=== PATIENT | female | born 1975 | race Caucasian/White ===

== ENCOUNTER 2016-12-04 06:09 | Inpatient (IN) | payer OTHER ==
[2016-12-03 10:33] VITALS: BMI 33.0
--- NOTE | 2016-12-03 11:03 | PREOPHP ---
DATE OF ADMISSION: 12/04/2016 CHIEF COMPLAINT: Excessive vaginal bleeding; uterine fibroids. HISTORY OF PRESENT ILLNESS: This is a 41-year-old female, 3, para 2, who has been bleeding for a period of time over a year now and was found to have large fibroids. She was recently admitte d to this hospital and received blood transfusion due to anemia secondary to the bleeding. A total abdominal hysterectomy was planned for this patient. She has a very large uterus, the size of a pre gnancy of 20 weeks. The alternatives of this, the benefits of the procedure, the risks, and the pos sible complications like infection, hemorrhage, and pelvic organ injury during the procedure were di scussed with the patient at great length. A shared decision-making process was initiated in the off ice. The patient was shown graphically what the removal of the uterus implies and the possible risk s, particularly having had sections before. She was allowed to ask questions. All her que stions were answered to her satisfaction, and she signed the appropriate surgical informed consent. PAST MEDICAL HISTORY: The patient denies any medical problems. Denies diabetes, cardiovascular dis ease, renal disease, liver disease, neurological disease, or thyroid problems. ALLERGIES: NO KNOWN ALLERGIES. MEDICATIONS: She has been taking iron on a regular basis along with Provera to stop the bleeding. FAMILY HISTORY: Noncontributory. REVIEW OF SYSTEMS: A 12-point review of systems is noncontributory. PHYSICAL EXAMINATION: GENERAL: Well-developed and nourished, in no distress, alert and oriented x3. VITAL SIGNS: Showed temperature to be 98, blood pressure 120/82, respirations 16 per minute, pulse is 72 per minute regular. HEENT: Within normal limits. Pupils are PERRLA. NECK: Supple. The thyroid is not palpable. There is no lymphadenopathy present. BREASTS: Show no masses or lumps. LUNGS: Clear to percussion and auscultation. HEART: Revealed normal sinus rhythm without a murmur. ABDOMEN: Soft. No palpable mass, firm, subumbilical, in the hypogastric area. There is an old Pfan nenstiel incision that is well healed. PELVIC: Normal external genitalia. Cervix is normal. Bimanual exam: The uterus is enlarged to ab out 20 weeks in size, irregular. No adnexal masses are present. LOWER EXTREMITIES: Within normal limits. NEUROLOGIC: normal. IMPRESSION: 1. Large uterine fibroids. 2. Excessive vaginal bleeding 3. Anemia. PLAN: The patient is to be admitted for a total abdominal hysterectomy tomorrow 12/04/2016. Dictated By: KATELYN BRAY MD CR/NTS Conf#: [id number] DID#: [id number] CC: AMPARO OLIVEROS MD;*End*
[~2016-12-04] VITALS: Ht 165.1 cm; Wt 90.3 kg
[2016-12-04] VITALS (25 sets, daily range): BP systolic 101–152; BP diastolic 59–88; PULSE 66–96; RESP 15–24; Ht 165.1 cm; Wt 90.3 kg
[2016-12-04] MEDS: LACTATED RINGER'S 1,000 ML IV* SCH ×3 (06:00→20:18)
[~2016-12-04 06:09] MED LIST: ABCC1C PO; MEDR10TA50 PO; NIF150 PO
[2016-12-04] MEDS ORDERED: FER325 PO (06:45)
[2016-12-04] MEDS ORDERED: NORE-82 PO (06:45)
[2016-12-04] MEDS ORDERED: VASOPRESSIN 20 UNITS INJ ONE (07:02)
[2016-12-04] MEDS ORDERED: SODIUM CL BACTERIOSTATIC 30 ML INJ ONE (07:02)
--- NOTE | 2016-12-04 07:06 | RADRPT ---
PROCEDURE: XR Chest. CLINICAL INDICATION: Preoperative evaluation. TECHNIQUE: Single frontal chest x-ray. COMPARISON: None available FINDINGS: A small patchy opacity is present in the right lower lobe. Scattered upper lobe well-defined rounde d densities likely represent calcified granulomas. Lungs are hypoinflated. No pleural effusion or pneumothorax is seen. The cardiomediastinal silhouette is unremarkable. The osseous structures are grossly intact. IMPRESSION: 1. Small patchy right lower lobe opacity may represent focal infiltrate or nodule. Follow-up PA and lateral chest x-ray versus CT may be obtained. 2. Scattered upper lobe well-defined small rounded densities likely represent calcified granulomas. RPTAT: QQ .Joel Viramontes MD, MD Date Time Electronically viewed and signed by .Joel Viramontes MD, on 12/04/2016 07:06 .A/
[2016-12-04] MEDS ORDERED: MIDAZOLAM 1 MG/ML 2 ML INJ ONE (07:35)
[2016-12-04] MEDS ORDERED: SUCCINYLCHOLINE CHLORIDE 100 MG/5 ML SYG IV ONE (07:35)
[2016-12-04] MEDS ORDERED: PROPOFOL 20 ML ONE ×2 (07:35→07:52)
[2016-12-04] MEDS ORDERED: ROCURONIUM 50 MG INJ ONE (07:35)
[2016-12-04] MEDS ORDERED: LIDOCAINE 2% (SDV) 5 ML INJ ONE (07:35)
[2016-12-04] MEDS ORDERED: morphine SULFATE/PF (10 MG/10 ML) INJ ONE (07:37)
[2016-12-04] MEDS ORDERED: PHENYLephrine (100 MCG/ML) 5ML SYG ONE ×2 (07:54→08:24)
[2016-12-04] MEDS ORDERED: CEFAZOLIN 1 GM INJ ONE (08:00)
[2016-12-04] MEDS ORDERED: EPHEDrine SULFATE 50 MG/5 ML SYG ONE (08:35)
[2016-12-04] MEDS ORDERED: ONDANSETRON 4 MG INJ ONE (08:39)
[2016-12-04] MEDS ORDERED: FAMOTIDINE 20 MG INJ ONE (08:40)
[2016-12-04] MEDS ORDERED: DEXAMETHASONE 4 MG/ML 1 ML INJ ONE (08:40)
[2016-12-04] MEDS ORDERED: NALBUPHINE HCL (10 MG/1 ML) INJ IV PRN (09:00)
[2016-12-04] MEDS ORDERED: HYDROmorphONE 1 MG/ML SYG IV PRN ×2 (09:00)
[2016-12-04] MEDS ORDERED: HYDROCODONE/APAP (5/325) TAB PO PRN (09:00)
[2016-12-04] MEDS ORDERED: HYDROmorphONE (0.2 MG/ML) 10ML SYG IV PRN (09:00)
[2016-12-04] MEDS ORDERED: ONDANSETRON 4 MG INJ IV PRN ×2 (09:00)
[2016-12-04] MEDS ORDERED: DIPHENHYDRAMINE 50 MG INJ IV PRN ×2 (09:00)
[2016-12-04] MEDS ORDERED: ACETAMINOPHEN 500 MG TAB PO PRN (09:00)
[2016-12-04] MEDS ORDERED: PROCHLORPERAZINE 10 MG INJ IV PRN (09:00)
[2016-12-04] MEDS ORDERED: MEPERIDINE 25 MG INJ IV PRN (09:00)
[2016-12-04] MEDS ORDERED: FENTAnyl 50 MCG/ML VIAL IV PRN (09:00)
[2016-12-04] MEDS ORDERED: NALOXONE (0.4 MG/ML) INJ IV PRN (09:00)
[2016-12-04] MEDS ORDERED: EPHEDrine SULFATE 50 MG/5 ML SYG IV PRN (09:00)
[2016-12-04] MEDS ORDERED: NEOSTIGMINE 3 MG/3 ML SYRINGE ONE ×2 (09:02→09:49)
[2016-12-04] MEDS ORDERED: GLYCOPYRROLATE 1 MG INJ ONE (09:02)
[2016-12-04] MEDS: LACTATED RINGER'S 1,000 ML IV SCH ×2 (09:58→18:11)
[2016-12-04] MEDS ORDERED: ACETAMINOPHEN 325 MG TAB PO PRN (10:00)
[2016-12-04] MEDS ORDERED: OXYCODONE/ACETAMINOPHEN (5/325) TAB PO PRN (10:00)
[2016-12-04] MEDS: ACETAMINOPHEN 1000MG/100ML IV 100 ML IVPB SCH ×3 (10:30→22:39)
[2016-12-04] MEDS: KETOROLAC 30 MG INJ IV PRN ×2 (10:37→20:19)
--- NOTE | 2016-12-04 13:07 | OPR ---
DATE OF OPERATION: 12/04/2016 PREOPERATIVE DIAGNOSES: 1. Excessive urine bleeding. 2. Fibroids. 3. Anemia. POSTOPERATIVE DIAGNOSES: 1. Excessive uterine bleeding. 2. Fibroids. 3. Anemia. OPERATION PERFORMED: Total abdominal hysterectomy, bilateral salpingectomy. SURGEON: Katelyn Herrmann MD. INSIDE SALES AGENT: Amparo Dave MD ANESTHESIA: Spinal and general. ANESTHESIOLOGIST: Lelia Banuelos MD ESTIMATED BLOOD LOSS: 300 mL. COMPLICATIONS: None. SPECIMENS: The uterus was sent to pathology as well as both fallopian tubes. PROCEDURE AND FINDINGS: With the patient under spinal and general anesthesia, laid on the table in the dorsal recumbent position. Her vagina and perineum was prepped with Betadine and a Hill cathet er was inserted. The abdomen was prepped with ChloraPrep and after 3 minutes was draped in the usua l sterile fashion for this procedure. The patient had a midline subumbilical scar and the uterus wa s large enough that we proceeded with another midline subumbilical incision. This was carried throu gh all the layers of the abdominal wall with ease. Once in the abdomen, a large symmetrical firm ut erus was found the size of a of 16 to 17 weeks. There were adhesions anteriorly of the bl adder to the uterus were extensive and had to be lysed prior to starting the case. This was done wit h scissors. The bladder was dissected away carefully from the anterior uterine wall. Then, the hys terectomy was started by clamping the left round ligament with LigaSure and then cutting it. The sa me was repeated on the contralateral side after releasing some more adhesions. Then, the anterior l eaf of the broad ligament was opened releasing more adhesions yet from the bladder. The upper pedic le on both sides consisted of an utero-ovarian ligament and tube and the round ligament was then cau terized and cut with the Bovie. This liberated the uterus further. The uterus was injected with a solution of vasopressin 20 units and 50 mL of normal saline. The uterine pedicles were skeletonized bilaterally and held by Maria Del Rosario clamps, cut and sutured with 0 Vicryl. Then, the specimen was trans ected high removing the body of the uterus with large fibroid. The stump of the cervix was held by long Vijay clamps. The bladder was dissected away further from the uterine cervix. The cardinal l igaments were clamped bilaterally with straight Maria Del Rosario clamps, cut and sutured with 0 Vicryl. The u terosacral ligaments were then identified and held by Maria Del Rosario clamps, cut and sutured with 0 Vicryl. The endopelvic fascia was circumferentially opened around the cervix. This was pushed away anterio rly to make the bladder even safer. The vagina was entered posteriorly and the cervix removed with Hebert's scissors. The vaginal cuff was closed with several sutures of rktyhq-qn-lelof of 0 Vicr yl that were held for reference. The pelvis was thoroughly washed with warm saline and this was suc tioned out. There was some active bleeding from the upper pedicle on the right side and ovarian vei n and artery. This was controlled with a Maria Del Rosario clamp and a jacckm-vi-cyjre suture of 0 Vicryl, obt aining good hemostasis. The vaginal cuff and the pedicles were inspected for bleeders. There were none. The vesicoperitoneum was then closed with a continuous running stitch of double 0 chromic cat gut, peritonealize the whole pelvis. No active bleeding was seen. The pelvis was thoroughly washed more with warm saline and this was suctioned out. The fallopian tubes were removed. The mesosalpi nx were clamped with Maria Del Rosario clamps and then cut and sutured with 0 Vicryl twice bilaterally. The ov wilber were normal and were left in place intraperitoneally. No active bleeding was seen thus all th e packing was removed. The first count of sponges was correct at this point. The abdomen was close d starting with the peritoneum with a continuous stitch of double 0 chromic catgut. The fascia was closed with 2 convergent running sutures of 0 PDS. Several ebvirm-hk-yfdjw reinforcing sutures of 0 Vicryl were utilized also. The subcutaneous tissues were approximated with continuous stitch of do uble 0 chromic catgut. Finally, the edges of skin were brought together with separate sterile stapl es. Sterile pressure dressing was applied and the patient was taken to recovery room and all vital signs stable. The urine in the Hill bag was clear at all times and abundant. EBL was 300 mL of bl ood. Needle, sponge and instrument count at the end of the procedure was correct twice. Dictated By: KATELYN COLLAZO/GINNA Conf#: [id number] DID#: [id number] CC: LELIA BANUELOS; AMPARO DAVE MD;*[facility]*
[2016-12-04] MEDS: CEFAZOLIN 2 GM/50 ML (PMX) 50 ML IVPB SCH ×2 (13:42→21:53)
[2016-12-05 00:05] VITALS: BP 107/57; RESP 18
[2016-12-05] MEDS: ACETAMINOPHEN 1000MG/100ML IV 100 ML IVPB SCH ×4 (04:14→22:45)
[2016-12-05] MEDS: LACTATED RINGER'S 1,000 ML IV* SCH ×3 (05:28→22:00)
[2016-12-05] MEDS: PANTOPRAZOLE 40 MG INJ IV SCH (05:30)
[2016-12-05] MEDS: CEFAZOLIN 2 GM/50 ML (PMX) 50 ML IVPB SCH (05:31)
[2016-12-05] MEDS: LACTATED RINGER'S 1,000 ML IV SCH ×2 (05:33→14:18)
[2016-12-05 06:29] LABS: BASOPHILS % 0.2 % (0.0-2.0); EOSINOPHILS % 0.2 % (0.0-7.0); HEMATOCRIT 26.6 % (37.0-47.0); HEMOGLOBIN 8.5 g/dl (12.0-16.0); LYMPHOCYTES # 1.3 10^3/ul (0.8-2.9); LYMPHOCYTES % 15.6 % (15.0-51.0); MEAN CORPUSCULAR HEMOGLOBIN 26.6 pg (29.0-33.0); MEAN CORPUSCULAR HGB CONC 32.1 g/dl (32.0-37.0); MEAN CORPUSCULAR VOLUME 82.8 fl (82.0-101.0); MEAN PLATELET VOLUME 8.3 fl (7.4-10.4); MONOCYTE # 0.7 10^3/ul (0.3-0.9); MONOCYTES % 8.1 % (0.0-11.0); NEUTROPHIL # 6.5 10^3/ul (1.6-7.5); NEUTROPHILS % 75.9 % (39.0-77.0); PLATELET COUNT 358 10^3/UL (140-440); RED BLOOD COUNT 3.21 10^6/ul (4.20-5.40); RED CELL DISTRIBUTION WIDTH 17.9 % (11.5-14.5); UNCORRECTED WBC 8.5 10^3/ul (4.8-10.8); WHITE BLOOD COUNT 8.5 10^3/ul (4.8-10.8)
[2016-12-05 06:30] LABS: POTASSIUM 3.8 mmol/L (3.5-5.1)
[2016-12-05 06:32] LABS: CREATININE 0.79 mg/dl (0.44-1.00)
[2016-12-05 06:33] LABS: CALCIUM 8.9 mg/dl (8.4-10.2)
[2016-12-05 06:37] LABS: CONDITION 1; LH ANALYZER COMMENTS 1
--- NOTE | 2016-12-05 07:18 | PN ---
Date/Time of Note Date/Time of Note DATE: 12/05/16 TIME: 07:13 Assessment/Plan VTE Prophylaxis VTE Prophylaxis Intervention: ambulation, anti-embolic stocking Lines/Catheters IV Catheter Type (from Nrsg): Peripheral IV Urinary Cath still in place: No Assessment/Plan Chief Complaint/Hosp Course Doing well,no nausea.Hill removed this morning Problems: Assessment/Plan Afebrile.Hemoglobin 8.5 WBC 8.5 Cont'd Hospitalization Reason: Still requires IV pain meds. Exam/Review of Systems Vital Signs Vitals Vital Signs Date Time Temp Pulse Resp B/P Pulse Ox O2 Delivery O2 Flow Rate FiO2 12/05/16 00:05 98.6 68 18 107/57 12/04/16 19:51 93 12/04/16 14:15 Nasal Cannula 2.0 Intake and Output 12/04/16 12/04/16 12/05/16 15:00 23:00 07:00 Intake Total 1650 ml 850 ml 1390 ml Output Total 925 ml 1000 ml 1100 ml Balance 725 ml -150 ml 290 ml Results Result Diagram: 12/05/1618 12/05/16 0518 Results 24 hrs Laboratory Tests Test 12/05/16 05:18 Anion Gap 13 Basophils # 0.0 Basophils % 0.2 Blood Morphology Comment Blood Urea Nitrogen 13 Calcium Level 8.9 Carbon Dioxide Level 26 Chloride Level 104 Creatinine 0.79 Eosinophils # 0.0 Eosinophils % 0.2 Glucose Level 95 Hematocrit 26.6 L Hemoglobin 8.5 L Lymphocytes # 1.3 Lymphocytes % 15.6 Mean Corpuscular Hemoglobin 26.6 L Mean Corpuscular Hemoglobin Concent 32.1 Mean Corpuscular Volume 82.8 Mean Platelet Volume 8.3 Monocytes # 0.7 Monocytes % 8.1 Neutrophils # 6.5 Neutrophils % 75.9 Nucleated Red Blood Cells # 0.0 Nucleated Red Blood Cells % 0.0 Platelet Count 358 # Potassium Level 3.8 Red Blood Count 3.21 L Red Cell Distribution Width 17.9 H Sodium Level 139 White Blood Count 8.5 # Medications Medications Current Medications Lactated Ringer's (Lr) 1,000 ml @ 125 mls/hr Q8H IV* ; Start 12/04/16 at 06:00 Hydromorphone HCl (Dilaudid) 0.4 mg Q2H PRN IV PAIN LEVEL 1-5; Start 12/04/16 at 09:00; Stop 12/05/16 at 07:45 Hydromorphone HCl (Dilaudid) 0.6 mg Q2H PRN IV PAIN LEVEL 6-10; Start 12/04/16 at 09:00; Stop 12/05/16 at 07:45 Acetaminophen (Tylenol Tab) 500 mg Q4H PRN PO PAIN LEVEL 1-3; Start 12/04/16 at 09:00; Stop 12/05/16 at 07:45; Status Future Hold Acetaminophen/ Hydrocodone Bitart ([place] (5/325)) 1 tab Q4H PRN PO PAIN LEVEL 4 -6; Start 12/04/16 at 09:00; Stop 12/05/16 at 07:45 Diphenhydramine HCl (Benadryl) 25 mg Q4H PRN IV PRURITUS Last administered on 12:59; Admin Dose 25 MG; Start 12/04/16 at 09:00; Stop 12/05/16 at 07:45 Nalbuphine HCl (Nubain) 5 mg Q4H PRN IV PRURITUS; Start 12/04/16 at 09:00; Stop 12/05/16 at 07:45 Ondansetron HCl (Zofran Inj) 4 mg Q6H PRN IV NAUSEA AND/OR VOMITING; Start 12/04 at 09:00; Stop 12/05/16 at 07:45 Naloxone HCl 0.2 mg 0.2 mg Q2M PRN IV FOR RESP RATE 8 OR LESS; Start 12/04/16 at 09:00; Stop 12/05/16 at 07:45 Lactated Ringer's (Lr) 1,000 ml @ 100 mls/hr Q10H IV Last administered on 05:33; Admin Dose 100 MLS/HR; Start 12/04/16 at 09:58 Acetaminophen (Tylenol Tab) 650 mg Q4H PRN PO PAIN LEVEL 1-5; Start 12/04/16 at 10:00; Status Future Hold Ibuprofen (Motrin) 600 mg Q8H PRN PO PAIN AND OR ELEVATED TEMP; Start 12/07/16 at 10:00 Oxycodone/ Acetaminophen (Percocet (5/ 325)) 1 tab Q4H PRN PO PAIN LEVEL 6-10; Start 12/04/16 at 10:00 Ondansetron HCl (Zofran Inj) 4 mg Q6H PRN IV NAUSEA AND/OR VOMITING; Start 12/04 at 10:00 Oxycodone/ Acetaminophen (Percocet (5/ 325)) 2 tab Q4H PRN PO PAIN; Start at 10:00 Pantoprazole (Protonix Iv) 40 mg DAILY@06 IV Last administered on 12/05/16 05: 30; Admin Dose 40 MG; Start 12/05/16 at 06:00 Ketorolac Tromethamine 30 mg 30 mg Q6H PRN IV PAIN Last administered on 20:19; Admin Dose 30 MG; Start 12/04/16 at 10:30; Stop 12/07/16 at 10:29 Acetaminophen (Ofirmev 1000mg/ 100ml Iv) 100 ml @ 400 mls/hr Q6H IVPB Last administered on 12/05/16 04:14; Admin Dose 400 MLS/HR; Start 12/04/16 at 10:30 KATELYN BRAY MD Dec 05, 2016 07:18
[2016-12-05 08:22] VITALS: BP 114/67; RESP 17
[2016-12-05] MEDS: KETOROLAC 30 MG INJ IV PRN (14:15)
[2016-12-05] MEDS: OXYCODONE/ACETAMINOPHEN (5/325) TAB PO PRN (18:38)
[2016-12-05 19:20] VITALS: BP 136/76; RESP 20
[2016-12-06] MEDS: OXYCODONE/ACETAMINOPHEN (5/325) TAB PO PRN ×3 (00:10→20:03)
[2016-12-06] MEDS: LACTATED RINGER'S 1,000 ML IV SCH (01:58)
[2016-12-06] MEDS: ACETAMINOPHEN 1000MG/100ML IV 100 ML IVPB SCH (04:35)
[2016-12-06] MEDS: LACTATED RINGER'S 1,000 ML IV* SCH (06:00)
[2016-12-06] MEDS: PANTOPRAZOLE 40 MG INJ IV SCH (06:23)
[2016-12-06 07:40] VITALS: BP 147/90; RESP 18
--- NOTE | 2016-12-06 08:11 | PD.PPDC ---
WIRELESS CELLULAR TECHNICIAN Discharge Instruction Diagnosis Final Diagnosis: Fibroids with excessive vaginal bleeding and anemia Condition Patient Condition: Good Diet Diet: Resume Regular Diet Activity/Restrictions Activity: Normal Activity May Shower Restrictions: No Exercising No Lifting No Sexual Activity Nothing in the Vagina No [place] Wound/Drain Care Instructions Wound/Drain Care Instructions: Keep clean and dry Follow-up Follow-up with Physician: 1, Week/Weeks Return to clinic for ASSISTANT IMPORT MANAGER Instructions: Fever greater than 101 Worsening abdominal pain Unable to tolerate diet Surgical Instructions: Incisional Drainage Incisional Redness KATELYN BRAY MD Dec 06, 2016 08:11
[2016-12-06] MEDS: MAGNESIUM HYDROXIDE 30ML CUP PO SCH ×2 (08:52→21:11)
[2016-12-06] MEDS: ENOXAPARIN 40 MG/0.4 ML SYG SC SCH (08:54)
--- NOTE | 2016-12-06 09:38 | DS ---
DATE OF ADMISSION: 12/04/2016 DATE OF DISCHARGE: FINAL DIAGNOSES: Uterine fibroids with excessive vaginal bleeding and anemia. SUMMARY: This is a 41-year-old female, 2, para 2, with 2 previous sections who had been bleeding excessively for a period of time that had prompted her two admissions with blood godoy sfusions. She was brought in for a total abdominal hysterectomy. This was carried out under spinal and general anesthesia by Dr. Banuelos. The patient tolerated the procedure well. She is on her secon d day postop today and passing gases spontaneously. She required an extra day of admission for pain control. She is going to be discharged home with written instructions. She is to follow up with iam beckham in the office in 1 week. She was given a prescription for Percocet to use 1 or 2 tablets every 6 hours p.r.n. pain. She is discharged in good condition on a regular diet. Dictated By: KATELYN COLLAZO/NTS Conf#: [id number] DID#: [id number] CC: AMPARO OLIVREOS MD;*End*
[2016-12-06 19:39] VITALS: BP 130/81; RESP 18
[2016-12-07] MEDS: PANTOPRAZOLE 40 MG INJ IV SCH (05:23)
[2016-12-07] MEDS: OXYCODONE/ACETAMINOPHEN (5/325) TAB PO PRN (05:33)
[2016-12-07 07:17] VITALS: BP 137/85; RESP 18
[2016-12-07] MEDS: ONDANSETRON 4 MG INJ IV PRN ×2 (07:57→14:21)
[2016-12-07 08:00] VITALS: BP 118/80; PULSE 88; RESP 18
[2016-12-07] MEDS ORDERED: IBUPROFEN 600 MG TAB PO PRN (10:00)
[2016-12-07] MEDS: MAGNESIUM HYDROXIDE 30ML CUP PO SCH (11:26)
[2016-12-07] MEDS: ENOXAPARIN 40 MG/0.4 ML SYG SC SCH (11:26)
== END 2016-12-07 17:00 | disposition home or self-care (01) | DRG 743 ==
LOC: REC 06:09 → MS1 11:27
PROVIDERS: ADMIT Specialist; ATTEND Specialist
PROC: 0UTC0ZZ Resection of Cervix, Open Approach (ICD-10-PCS; 2016-12-04)
PROC: 0UB70ZZ Excision of Bilateral Fallopian Tubes, Open Approach (ICD-10-PCS; 2016-12-04)
PROC: 0UT90ZZ Resection of Uterus, Open Approach (ICD-10-PCS; principal; 2016-12-04 07:30)
DX: D25.1 Intramural leiomyoma of uterus (principal); D50.0 Iron deficiency anemia secondary to blood loss (chronic); N92.4 Excessive bleeding in the premenopausal period
CPT/HCPCS: 71010; 80048; 84703; 85025; 86850; 86870; 86900; 86901; 86920; 87086; 88307; C9113; J0131; J0330; J0690; J1100; J1200; J1650; J1885; J2175; J2250; J2274; J2370; J2405; J2710; J7120

== ENCOUNTER 2017-03-17 13:07 | Day surgery (SDC) | payer OTHER ==
[~2017-03-17] VITALS: Ht 165.1 cm; Wt 85.0 kg
[2017-03-17] VITALS (10 sets, daily range): BP systolic 129–148; BP diastolic 86–97; PULSE 81–92; RESP 17–28; Ht 165.1 cm; Wt 85.0 kg
[~2017-03-17 13:07] MED LIST changes: -ABCC1C PO; +CEFAZOLIN 2 GM/50 ML (PMX) 50 ML IVPB SCH; -MEDR10TA50 PO; -NIF150 PO; +SOD CHLORIDE 0.9% 1,000 ML IV SCH
[2017-03-17] MEDS ORDERED: IBUP100O10 PO (13:57)
[2017-03-17 13:59] LABS: ADD SCAN DIFF NO
[2017-03-17 14:01] LABS: BASOPHILS % 0.7 % (0.0-2.0); EOSINOPHILS # 0.3 10^3/ul (0.0-0.5); HEMATOCRIT 35.7 % (37.0-47.0); HEMOGLOBIN 10.5 g/dl (12.0-16.0); LYMPHOCYTES # 1.8 10^3/ul (0.8-2.9); LYMPHOCYTES % 30.4 % (15.0-51.0); MEAN CORPUSCULAR HGB CONC 29.4 g/dl (32.0-37.0); MEAN CORPUSCULAR VOLUME 74.7 fl (82.0-101.0); MEAN PLATELET VOLUME 9.5 fl (7.4-10.4); MONOCYTE # 0.5 10^3/ul (0.3-0.9); MONOCYTES % 8.3 % (0.0-11.0); NEUTROPHIL # 3.4 10^3/ul (1.6-7.5); NEUTROPHILS % 55.4 % (39.0-77.0); PLATELET COUNT 355 10^3/UL (140-415); RED BLOOD COUNT 4.78 10^6/ul (4.20-5.40); RED CELL DISTRIBUTION WIDTH 20.2 % (11.5-14.5); WHITE BLOOD COUNT 6.1 10^3/ul (4.8-10.8)
[2017-03-17 14:14] LABS: INR 0.98; PARTIAL THROMBOPLASTIN TIME 26.9 Sec (25.0-35.0)
[2017-03-17 14:21] LABS: ALBUMIN 4.1 g/dl (3.3-4.9)
[2017-03-17 14:22] LABS: POTASSIUM 3.2 mmol/L (3.5-5.1)
[2017-03-17 14:24] LABS: ALBUMIN/GLOBULIN RATIO 1.13; BILIRUBIN,INDIRECT 1.2 mg/dl (0-1.1); BILIRUBIN,TOTAL 1.2 mg/dl (0.2-1.3); TOTAL PROTEIN 7.7 g/dl (6.1-8.1)
[2017-03-17 14:25] LABS: CALCIUM 9.1 mg/dl (8.4-10.2); CREATININE 0.71 mg/dl (0.44-1.00)
[2017-03-17] MEDS ORDERED: BUPIVACAINE 0.25% (MPF) 30 ML INJ ONE (17:19)
[2017-03-17] MEDS ORDERED: LIDOCAINE 2% (MDV) 20 ML INJ ONE (17:24)
[2017-03-17] MEDS ORDERED: BUPIVACAINE 0.5% (SDV) 30 ML INJ ONE (17:24)
[2017-03-17] MEDS ORDERED: MIDAZOLAM 1 MG/ML 2 ML INJ ONE (17:41)
[2017-03-17] MEDS ORDERED: FENTAnyl 50 MCG/ML VIAL ONE (17:41)
[2017-03-17] MEDS ORDERED: CEFAZOLIN 1 GM INJ ONE (18:01)
[2017-03-17] MEDS ORDERED: PROPOFOL 20 ML ONE (18:01)
[2017-03-17] MEDS ORDERED: LIDOCAINE 2% (SDV) 5 ML INJ ONE (18:01)
[2017-03-17] MEDS ORDERED: ONDANSETRON 4 MG INJ IV PRN (18:30)
[2017-03-17] MEDS ORDERED: METOCLOPRAMIDE 10 MG INJ IV PRN (18:30)
[2017-03-17] MEDS ORDERED: HYDROmorphONE (0.2 MG/ML) 10ML SYG IV PRN ×3 (18:30)
[2017-03-17] MEDS ORDERED: DIPHENHYDRAMINE 50 MG INJ IV PRN (18:30)
[2017-03-17] MEDS ORDERED: MEPERIDINE 25 MG INJ IV PRN (18:30)
[2017-03-17] MEDS ORDERED: FENTAnyl 50 MCG/ML VIAL IV PRN ×2 (18:30)
[2017-03-17] MEDS ORDERED: HYDROCODONE/APAP (5/325) TAB PO ONE (18:30)
--- NOTE | 2017-03-17 23:36 | OPR ---
DATE OF OPERATION: 03/17/2017 INDICATION: This is a 41-year-old female with a right arm mass x2 and left arm mass x1. She reques ts surgical excision of the masses. Risks, alternatives, benefits, and personnel were discussed wit h the patient. Patient expresses understanding and consents to the operation. PREOPERATIVE DIAGNOSIS: Right arm mass x2 and left arm mass x1. PREOPERATIVE DIAGNOSIS: Right arm mass x2 and left arm mass x1. OPERATION PERFORMED: 1. Excision of right upper arm mass x1 with incision size of 4 cm and mass size of 3 cm right lower arm. 2. Right lower arm excision of mass with 3 cm size incision and 3 cm size mass. 3. Left lower arm mass excision with a 4 cm size incision and 3 cm size mass. 4. Localized adjacent tissue transferred with the use of skin flaps. SURGEON: Sherri Miguel MD SPECIMENS: Right arm mass x2 and left arm mass x1. COMPLICATIONS: None. ANESTHESIA: MAC. PROCEDURE: The patient was taken to the OR and prepped and draped in usual sterile fashion. Surgic al timeout was performed. IV antibiotics were given. Local anesthesia infiltrated into left lower arm masses and right upper and lower arm masses. Transverse incision was made with a 15 blade and a ll surgical sites. Dissection cautery was carried down to the mass and circumferentially excised. There was good hemostasis. Due to tissue defect, localized adjacent tissue transferred with the use of skin flaps were performed on all 3 sites. There was good hemostasis. Dry dressings were applie d. Dictated By: SHERRI GARCIA/GINNA Conf#: [id number] DID#: [id number]
== END 2017-03-17 19:30 | disposition home or self-care (01) ==
LOC: SDS 13:07
PROVIDERS: ATTEND Surgery
DX: D17.22 Benign lipomatous neoplasm of skin and subcutaneous tissue of left arm (principal); D17.21 Benign lipomatous neoplasm of skin and subcutaneous tissue of right arm
CPT/HCPCS: 14020; 14021; 80053; 85025; 85610; 85730; 88307; J0690; J2250; J3010; Z7512; Z7610

== ENCOUNTER 2017-04-18 06:18 | Day surgery (SDC) | payer OTHER ==
[2017-04-17 15:19] VITALS: BMI 30.5
[~2017-04-18] VITALS: Ht 165.1 cm; Wt 86.2 kg
[2017-04-18] VITALS (8 sets, daily range): BP systolic 110–142; BP diastolic 68–93; PULSE 58–72; RESP 14–24; Ht 165.1 cm; Wt 86.2 kg
[~2017-04-18 06:18] MED LIST changes: -CEFAZOLIN 2 GM/50 ML (PMX) 50 ML IVPB SCH; +IBUP100O10 PO; -SOD CHLORIDE 0.9% 1,000 ML IV SCH
[2017-04-18] MEDS ORDERED: SEVOFLURANE 15 MIN ONE (07:00)
[2017-04-18] MEDS ORDERED: SOD CHLORIDE 0.9% 1,000 ML IV SCH (07:00)
[2017-04-18] MEDS ORDERED: CEFAZOLIN 1 GM INJ ONE (07:00)
[2017-04-18] MEDS ORDERED: CEFAZOLIN 2 GM/50 ML (PMX) 50 ML IVPB SCH (07:00)
[2017-04-18 07:14] LABS: ADD SCAN DIFF NO
[2017-04-18 07:37] LABS: BASOPHIL # 0.1 10^3/ul (0.0-0.1); BASOPHILS % 0.9 % (0.0-2.0); EOSINOPHILS # 0.2 10^3/ul (0.0-0.5); HEMATOCRIT 35.6 % (37.0-47.0); HEMOGLOBIN 10.6 g/dl (12.0-16.0); LYMPHOCYTES # 1.6 10^3/ul (0.8-2.9); LYMPHOCYTES % 29.5 % (15.0-51.0); MEAN CORPUSCULAR HEMOGLOBIN 23.1 pg (29.0-33.0); MEAN CORPUSCULAR HGB CONC 29.8 g/dl (32.0-37.0); MEAN CORPUSCULAR VOLUME 77.7 fl (82.0-101.0); MEAN PLATELET VOLUME 10.5 fl (7.4-10.4); MONOCYTE # 0.5 10^3/ul (0.3-0.9); MONOCYTES % 9.3 % (0.0-11.0); NEUTROPHILS % 56.1 % (39.0-77.0); PLATELET COUNT 372 10^3/UL (140-415); POTASSIUM 3.4 mmol/L (3.5-5.1); RED BLOOD COUNT 4.58 10^6/ul (4.20-5.40); RED CELL DISTRIBUTION WIDTH 20.5 % (11.5-14.5); WHITE BLOOD COUNT 5.3 10^3/ul (4.8-10.8)
[2017-04-18 07:39] LABS: INR 0.94; PARTIAL THROMBOPLASTIN TIME 28.1 Sec (25.0-35.0); PROTIME 12.6 Sec (12.2-14.2)
[2017-04-18 07:41] LABS: CALCIUM 8.9 mg/dl (8.4-10.2); CREATININE 0.65 mg/dl (0.44-1.00)
[2017-04-18] MEDS ORDERED: BUPIVACAINE 0.25% (MPF) 10 ML 10 ML VIAL ONE (07:42)
[2017-04-18] MEDS ORDERED: BUPIVACAINE 0.25% (MPF) 30 ML INJ ONE (07:42)
[2017-04-18] MEDS ORDERED: METO25TA7 PO (07:52)
[2017-04-18] MEDS ORDERED: LIDOCAINE 2% (SDV) 5 ML INJ ONE (07:53)
[2017-04-18] MEDS ORDERED: PROPOFOL 20 ML ONE (07:53)
[2017-04-18] MEDS ORDERED: MEPERIDINE 100 MG INJ ONE (07:53)
[2017-04-18] MEDS ORDERED: METOCLOPRAMIDE 10 MG INJ ONE (07:57)
[2017-04-18] MEDS ORDERED: ONDANSETRON 4 MG INJ ONE (07:57)
--- NOTE | 2017-04-18 08:40 | OPR ---
Date/Time of Note Date/Time of Note DATE: 04/18/17 TIME: 08:38 Operative Report Procedure Date: April 18, 2017 Preoperative Diagnosis right and left arm masses Postoperative Diagnosis same Operation Performed left lower arm tumor resection 5 cm incision and 4 cm tumor right lower arm anterior tumor resection 4 cm incision 2 cm tumor right lower arm posterior tumor resection 4 cm incision 2 cm tumor localized adjacent tissue transfer with the use of skin flaps total defect 13 sq cm Surgeon: Juni KEITH Specimens left arm mass right arm anterior mass right arm posterior mass Juni KEITH April 18, 2017 08:40
--- NOTE | 2017-04-18 08:56 | OPR ---
DATE OF OPERATION: 04/18/2017 INDICATION: This is a 41-year-old female with multiple masses in the right and left arm. She reque sts surgical excision. Risks, alternatives, benefits, and personnel were discussed with the patient . The patient expressed understanding and consents to the operation. PREOPERATIVE DIAGNOSIS: Right and left arm tumors. POSTOPERATIVE DIAGNOSIS: Right and left arm tumors. OPERATIONS PERFORMED 1. Left anterior lower arm tumor resection with a 5 cm incision and 4 cm size mass. 2. Right lower arm anterior tumor excision with a 4 cm size incision and 2 cm size mass. 3. Right lower arm posterior tumor excision with a 4 cm size incision and 2 cm size mass. 4. Localized adjacent tissue transfer with the use of skin flaps with total scored defect of 13 squ are cm. SURGEON: Sherri Miguel MD SPECIMEN: Left lower arm mass, right lower arm anterior mass, right lower arm posterior mass. COMPLICATIONS: None. ANESTHESIA: General. DESCRIPTION OF PROCEDURE: The patient was taken to the OR and prepped and draped in usual sterile f ashion. Surgical time out was performed. IV antibiotics were given. Transverse incision is made o kory the left lower arm mass with a 15 blade. Dissection cautery was carried down to the tumor and c ircumferentially excised. There was good hemostasis. Due to the large tissue defect, localized adj acent tissue transfer with the use of skin flaps was performed with interrupted 3-0 Vicryl for closu re and skin luz. Local anesthesia was injected. The right anterior arm masses were dressed in a similar fashion with a 15 blade and a transverse incision. Dissection cautery was carried down to the mass and circumferentially excised. The tumor was resected. Due to the tissue defect, localiz ed adjacent tissue transfer with the use of skin flaps was performed, multilayer closure with interr upted 3-0 Vicryl and skin luz. The right lower arm posterior mass was addressed in a similar fa shion with a transverse incision with a 15 blade. Dissection cautery was carried down to the mass a nd circumferentially excised. The tumor was resected and there was good hemostasis, closure and mul tiple other fashion with interrupted 3-0 Vicryl and skin luz. Local anesthesia was injected. D ry dressings were applied to all sites. Dictated By: SHERRI GARCIA/GINNA Conf#: [id number] [facility]#: [id number]
[2017-04-18] MEDS ORDERED: MEPERIDINE 25 MG INJ IV PRN (09:00)
[2017-04-18] MEDS ORDERED: MIDAZOLAM 1 MG/ML 2 ML INJ IV PRN (09:00)
[2017-04-18] MEDS ORDERED: METOCLOPRAMIDE 10 MG INJ IV PRN (09:00)
[2017-04-18] MEDS ORDERED: IBUPROFEN 600 MG TAB PO ONE (09:00)
[2017-04-18] MEDS ORDERED: DIPHENHYDRAMINE 50 MG INJ IV PRN (09:00)
[2017-04-18] MEDS ORDERED: FENTAnyl 50 MCG/ML VIAL IV PRN ×2 (09:00)
[2017-04-18] MEDS ORDERED: ONDANSETRON 4 MG INJ IV PRN (09:00)
[2017-04-18] MEDS ORDERED: morphine (1 MG/ML) 10ML SYRINGE IV PRN ×2 (09:00)
--- NOTE | 2017-04-18 19:31 | RADRPT ---
Vent Rate: 64 bpm RR Interval: 0 msec AL Interval: 152 msec QRS Duration: 92 msec QT Interval: 394 msec QTC Interval: 406 msec P-R-T [place]: 64 - 26 - 23 degrees Normal sinus rhythm Possible Left atrial enlargement Septal infarct , age undetermined Abnormal ECG Electronically Signed By: Yonny Perea [id number]
== END 2017-04-18 10:50 | disposition home or self-care (01) ==
LOC: SDS 06:18
PROVIDERS: ATTEND Surgery
DX: D17.21 Benign lipomatous neoplasm of skin and subcutaneous tissue of right arm (principal); I10 Essential (primary) hypertension; E66.9 Obesity, unspecified; Z68.31 Body mass index [BMI] 31.0-31.9, adult
CPT/HCPCS: 14021; 80048; 85025; 85610; 85730; 88307; 93005; J0690; J2175; J2405; J2765; Z7512; Z7610

== ENCOUNTER 2019-04-21 08:24 | Day surgery (SDC) | payer OTHER ==
--- NOTE | 2019-04-20 19:30 | PREOPHP ---
DATE OF ADMISSION: 04/18/2017 HISTORY OF PRESENT ILLNESS: This is a 43-year-old patient who is going to be admitted for diagnostic arthroscopy of right knee, partial medial and lateral meniscectomy, possibly repair synovectomy microfracture, application of Pimentel dressing. The patient has been experiencing right knee pain for quite a while. Conservative treatment resulted in limited benefit to the patient and patient has requested surgical intervention. PAST MEDICAL HISTORY: Hypertension, on medication. SOCIAL HISTORY: Nonsmoker, nondrinker. FAMILY HISTORY: Positive for hypertension. ALLERGIES: NO HISTORY OF ALLERGY TO MEDICATION. PHYSICAL EXAMINATION: VITAL SIGNS: Height of 55, weighing 197 pounds. SKIN: Within normal limits. ENT: PERRLA. HEAD AND NECK: Normocephalic. Trachea midline. Bilateral symmetrical carotid pulses. No mass, no bruit, no lymphadenopathy. CARDIOVASCULAR: Normal sinus rhythm. S1, S2 normal. No murmur, no JVD. Minimal peripheral edema. LUNGS: Clear. ABDOMEN: Protuberant. No organomegaly. No mass. Bowel sounds present. GENITOURINARY AND RECTAL: Not done, not pertinent to this admission. MUSCULOSKELETAL: Head and neck unremarkable. Upper extremities normal with normal neurovascular examination. Spine clear. Both lower extremities symmetrical and normal except for knees. There is synovitis present. Range of motion is from 0 to 125 degrees. Minimal muscle atrophy. There is joint line tenderness. There is tenderness over the medial as well as lateral tibiofemoral joint line and subpatellar crepitation. There is some tenderness over the medial and lateral patellofemoral joint. IMAGING DATA: MRI of the right knee has shown torn medial meniscus and torn lateral meniscus, chondromalacia. DIAGNOSIS: Right knee internal derangement, torn medial and lateral meniscus, synovitis. PLAN: Treatment plan, alternatives, risks and benefits discussed. The patient understands possible complications from surgery such as infection, bleeding, nerve damage, vascular damage, possibility of deep venous thrombosis, pulmonary embolism, hypersensitivity from medication, and even . [place] result may not be obtained depending on actual finding or unknown factor or factors. Formal H and P is supposed to be done by PCP. Dictated By: TR OG/GINNA Conf#: [id number] DID#: [id number] [facility]ITAL[facility]dir[facility]ak
[~2019-04-21] VITALS: Ht 165.1 cm; Wt 90.3 kg
[2019-04-21] VITALS (14 sets, daily range): BP systolic 105–130; BP diastolic 67–82; PULSE 64–76; RESP 11–18; Ht 165.1 cm; Wt 90.3 kg
[~2019-04-21 08:24] MED LIST changes: -IBUP100O10 PO; +METO-335 PO
[2019-04-21] MEDS ORDERED: METO-429 PO (08:55)
--- NOTE | 2019-04-21 10:00 | PREAC ---
Date/Time of Note Date/Time of Note DATE: 04/21/19 TIME: 09:57 Anesthesia Eval and Record Evaluation Time Pre-Procedure Interview DATE: 04/21/19 TIME: 09:57 Age 43 Sex female NPO: 8 hrs Preoperative diagnosis Right knee internal derangement, torn medial and lateral meniscus, synovitis Planned procedure R knee operative arthroscopy partial medial and lateral meniscectomy and meniscal repaire, synovectomy Past Medical History Past Medical History: Includes Cardio: HTN Surgery & Anesthesia Issues Hx of PONV Meds Anticoagulation: No Beta Serafin within 24 hr: Yes Reported Medications Metoprolol Tartrate* (Lopressor*) 50 Mg Tab, 50 MG PO BID, #60 TAB 04/21/19 Discontinued Reported Medications Metoprolol Succinate* (Toprol XL*) 25 Mg Tab.sr.24h, 25 MG PO BID, #30 TAB 04/18/17 Meds reviewed: Yes Allergies Coded Allergies: No Known Allergies (Verified Allergy, Unknown, 04/21/19) Allergies Reviewed: Yes Labs/Studies Labs Reviewed: Reviewed by anesthesiologist test: Negative Studies: CXR (Scattered small calcified nodules within the right upper and lower lung cedillo are unchanged.; no new acute disease process) Pre-procedure Exam Last vitals Vital Signs Date Temp Pulse Resp B/P (MAP) Pulse Ox O2 O2 Flow FiO2 Time Delivery Rate 04/21/19 97.9 69 16 130/82 97 Room Air 09:13 (98) Airway: Adequate mouth opening, Adequate thyromental dist Mallampati: Mallampati II Teeth: Normal Lung: Normal Heart: Normal ASA Physical Status ASA physical status: 2 Emergency: None Planned Anesthetic General/MAC: ETT (to the discretion of anesthesiologist), LMA Nerve block: Other (consented for adductor canal block) Pre-operative Attestations Prior to commencing anesthesia and surgery, the patient was re-evaluated, there was verification of: *The patient's identity *The results of appropriate recent lab work and preoperative vital signs *The above evaluation not changing prior to induction *Anesthetic plan, risk benefits, alternative and complications discussed with patient/family; questions answered; patient/family understands, accepts and wishes to proceed. BRITTANY LINO April 21, 2019 10:00
[2019-04-21] MEDS ORDERED: morphine SULFATE/PF (10 MG/10 ML) INJ ONE (10:20)
[2019-04-21] MEDS ORDERED: EPINEPHrine 1 MG/ML 30 ML INJ IRR SCH (10:30)
[2019-04-21] MEDS ORDERED: ROCURONIUM 50 MG INJ ONE (11:25)
[2019-04-21] MEDS ORDERED: PROPOFOL 20 ML ONE (11:25)
[2019-04-21] MEDS ORDERED: MIDAZOLAM 1 MG/ML 2 ML INJ ONE (11:25)
[2019-04-21] MEDS ORDERED: CEFAZOLIN 1 GM INJ ONE (11:25)
[2019-04-21] MEDS ORDERED: GLYCOPYRROLATE 0.4 MG INJ ONE (11:25)
[2019-04-21] MEDS ORDERED: NEOSTIGMINE 3 MG/3 ML SYRINGE ONE (11:25)
[2019-04-21] MEDS ORDERED: ONDANSETRON 4 MG INJ ONE (11:26)
[2019-04-21] MEDS ORDERED: FENTAnyl 50 MCG/ML VIAL ONE ×2 (11:26→12:47)
[2019-04-21] MEDS ORDERED: OXYCODONE/ACETAMINOPHEN (5/325) TAB PO PRN (12:00)
[2019-04-21] MEDS ORDERED: EPHEDrine 25 MG/5 ML SYG IV PRN (12:00)
[2019-04-21] MEDS ORDERED: hydrALAzine 20 MG INJ IV PRN (12:00)
[2019-04-21] MEDS ORDERED: KETOROLAC 30 MG INJ IV PRN (12:00)
[2019-04-21] MEDS ORDERED: MIDAZOLAM 1 MG/ML 2 ML INJ IV PRN (12:00)
[2019-04-21] MEDS ORDERED: LABETALOL HCL 20MG INJ IV PRN (12:00)
[2019-04-21] MEDS ORDERED: HYDROmorphONE 1 MG/5 ML IV SYRINGE IV PRN (12:00)
[2019-04-21] MEDS ORDERED: MEPERIDINE 25 MG INJ IV PRN (12:00)
[2019-04-21] MEDS ORDERED: METOCLOPRAMIDE 10 MG INJ IV PRN (12:00)
[2019-04-21] MEDS ORDERED: ONDANSETRON 4 MG INJ IV PRN (12:00)
[2019-04-21] MEDS ORDERED: DEXAMETHASONE 4 MG/ML 5 ML INJ ONE (12:07)
--- NOTE | 2019-04-21 13:19 | PAC ---
Date/Time of Note Date/Time of Note DATE: 04/21/19 TIME: 13 :50 Post-Anesthesia Notes Post-Anesthesia Note Last documented vital signs Vital Signs Date Temp Pulse Resp B/P (MAP) Pulse Ox O2 O2 Flow FiO2 Time Delivery Rate 04/21/19 97.9 69 16 130/82 97 Room Air 09:13 (98) Activity: WNL Respiratory function: WNL Cardiovascular function: WNL Mental status: Baseline Pain reasonably controlled: Yes Hydration appropriate: Yes Nausea/Vomiting absent: Yes KENDRA CRAIG MD April 21, 2019 13:19
--- NOTE | 2019-04-21 13:20 | SIPON ---
Date/Time of Note Date/Time of Note DATE: 04/21/19 TIME: 13:16 Operative Report Preoperative Diagnosis Right knee torn medial and lateral meniscus plus synovitis Postoperative Diagnosis The same Operation/Procedure Performed Diagnostic scope, partial medial, lateral meniscotomy, plus synovectomy and application of Pimentel dressing Surgeon bruno barbosa shipping assistant none Anesthesia: general Estimated blood loss: minimal Transfusion Required none Specimen None Grafts/Implants none Complications none BRUNO BARBOSA MD April 21, 2019 13:20
[2019-04-21] MEDS ORDERED: HYDROCODONE/APAP (5/325) TAB PO PRN (13:30)
--- NOTE | 2019-04-21 16:50 | OPR ---
DATE OF OPERATION: PREOPERATIVE DIAGNOSIS: Torn medial and lateral meniscus with synovitis, right knee. POSTOPERATIVE DIAGNOSIS: Torn medial and lateral meniscus with synovitis, right knee. OPERATION PERFORMED: Partial medial meniscectomy, partial lateral meniscectomy with synovectomy of r ight knee, application of Pimentel dressing. ANESTHESIA: General. BLEEDING: Minimal. COMPLICATIONS: None. DESCRIPTION OF PROCEDURE: Patient was transferred to the operating room and placed on the table in s upine position. General anesthesia was induced. 2 g of Ancef was given IV. Right lower extremity w as prepped and draped in routine fashion. Landmarks were marked through 2 anterior portals, 1 medial and 1 lateral to parapatellar tendon. Operative arthroscopy was commenced. Examination of suprapat ellar pouch indicated some mild synovitis which was coagulated with the ArthroCare Bovie. 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 The rest of it were made grade II. T here was chondral injury at the ____ on the trochlear side. There was complex tear of the posterior horn of the medial meniscus and there was synovitis in the medial compartment. Articular surface [place] wed ____ fibrillation with very tight knee ____ partial medial meniscectomy to stable margin was done ____ medial compartment was done by coagulation. ACL was intact. Lateral compartment shows slight fibrillation and there was a flap tear of the anterior wall, which was taken care by ArthroCare Bovie by ablation. At the suprapatellar pouch, partial synovectomy was performed. Knee was evacuated from debris using copious saline irrigation. Portal was closed with benzoin and S david-Strips and 10 mg Duramorph mixed with 10 mL of injectable saline was injected into the knee. St erile Pimentel dressing was applied. Procedure was terminated. General anesthesia was stopped. She wa s taken to the recovery room in good and stable condition. Dictated By: TR OG/GINNA Conf#: [id number] DID#: [id number]
== END 2019-04-21 16:50 | disposition home or self-care (01) ==
LOC: SDS 08:24
PROVIDERS: ATTEND Internal Medicine Endocrinology, Diabetes & Metabolism
DX: M23.241 Derangement of anterior horn of lateral meniscus due to old tear or injury, right knee (principal); M23.221 Derangement of posterior horn of medial meniscus due to old tear or injury, right knee; M65.9 Synovitis and tenosynovitis, unspecified; M22.41 Chondromalacia patellae, right knee; I10 Essential (primary) hypertension; Z82.49 Family history of ischemic heart disease and other diseases of the circulatory system
CPT/HCPCS: 27333; 71045; 84703; C1713; J0171; J1100; J1170; J2175; J2250; J2274; J2405; J3010; Z7512; Z7610; J0690; J2710